=== PATIENT | female | born 1945 | race Caucasian/White ===

== ENCOUNTER → 2023-07-04 17:22 | Outpatient (REF) | payer MEDICARE, OTHER, SELFPAY | LOC: WDC 17:22 | PROVIDERS: ATTENDING PHYSICIAN Family Medicine | DX: Z12.31 Encounter for screening mammogram for malignant neoplasm of breast (principal) | CPT/HCPCS: 77063; 77067 ==

== ENCOUNTER → 2024-08-08 13:34 | Outpatient (REF) | payer MEDICARE, OTHER, SELFPAY | LOC: WDC 13:34 | PROVIDERS: ATTENDING PHYSICIAN Family Medicine | DX: Z12.31 Encounter for screening mammogram for malignant neoplasm of breast (principal) | CPT/HCPCS: 77063; 77067 ==

== ENCOUNTER 2024-12-14 01:30 | Inpatient (IN) | payer MEDICARE, OTHER, SELFPAY ==
[2024-12-13 22:15] VITALS: BP 139/71
[2024-12-13 22:25] VITALS: BMI 25.8
[2024-12-13 22:26] VITALS: BP 139/71
[2024-12-13 22:38] LABS: Hematocrit 38.1 % (37.0-47.0); Hemoglobin 13.6 g/dL (12.0-16.0); Mean Corp Hgb Conc. 35.7 g/dL (33.0-37.0); Mean Corpuscular Volume 89.6 fL (81.0-99.0); Nucleated Red Blood Cells % 0 %; Platelet Count 213 10^3/uL (130-400); Red Cell Dist. Width 12.4 % (11.5-14.5)
[2024-12-13 22:45] LABS: ALT (SGPT) 16 U/L (0-35); AST (SGOT) 22 U/L (14-36); Albumin 4.0 g/dl (3.5-5.0); Alkaline Phosphatase 81 U/L (38-126); Blood Urea Nitrogen 9 mg/dl (7-17); Calcium 9.3 mg/dl (8.4-10.2); Carbon Dioxide 26 mmol/L (22-30); Chloride 92 mmol/L (98-107); Estimated Creatinine Clearance 51 ml/min; Glucose 166 mg/dl (70-99); Potassium 3.0 mmol/L (3.5-5.1); Sodium 126 mmol/L (135-145); Total Protein 6.9 g/dl (6.3-8.2); eGFR > 60.00
[2024-12-13 22:46] LABS: COVID-19 Antigen Negative (Negative)
[2024-12-13 22:55] LABS: Troponin I < 0.012 ng/ml
[2024-12-13 23:00] VITALS: BP 129/69
--- NOTE | 2024-12-13 23:35 | ED.GENMED ---
History of Present Illness
General
Chief Complaint: Fainting/Passed Out
Source: patient, spouse and ambulance crew
Exam Limitations: none
Time Seen by Provider: 12/13/24 22:23
Nursing documentation reviewed up to this point in time: agreed with
History of Present Illness
History of Present Illness:
Note:
CHIEF COMPLAINT(S)
Syncope
HISTORY OF PRESENT ILLNESS
The patient is a 79-year-old female who experienced a syncopal episode at home. She was attempting to clean her home and found herself on the floor, indicating she may have passed out. She reports a similar incident in the past and suspects
inadequate hydration contributed to this event. The patient feels improved at present and denies current pain. She remains oriented, correctly identifying the current year, month, and her location. The patient noticed a small bump on the top of her
head, and there is evidence of a minor laceration. A computed tomography scan of the head is planned to assess for possible head trauma.
PAST MEDICAL AND SURGICAL HISTORY
The patient has a history of high blood pressure, high cholesterol, and hypothyroidism. She reports previous surgery, notably a hysterectomy.
ALLERGIES
Penicillin, which causes rash.
MEDICATIONS
Atenolol, atorvastatin, levothyroxine; the specific dosages are not mentioned.
PHYSICAL EXAM
General: Alert, no acute distress.
Skin: Small bump on the top of the head. Minor laceration noted.
Head: Normocephalic, atraumatic, except for noted findings.
CV: S1/2, no murmurs
Eye, Ears, Nose, Mouth, and Throat: Oral mucosa moist.
Neurological: Alert and oriented to person, place, time, and situation; exhibits no focal neurological deficits.
PROBLEM LIST
Acute Problems:
- Syncope
- Minor head trauma
Chronic Problems:
- Hypertension
- Hyperlipidemia
- Hypothyroidism
PLAN
- Perform a computed tomography scan of the head to rule out intracranial injury.
- Ensure patient is comfortable and warm with a blanket, as requested.
- Reassess hydration status and provide guidance on maintaining adequate fluid intake.
- Review current medications for any potential contribution to syncopal episodes.
DIFFERENTIAL DIAGNOSIS
The Differential Diagnosis includes, in no particular order and is not limited to:
1. Dehydration
2. Orthostatic hypotension
3. Medication side effect
4. Vasovagal syncope
5. Cardiac arrhythmia
6. Stroke or TIA
7. Metabolic disturbance
8. Neurogenic syncope
9. Blood volume depletion
10. Intracranial hemorrhage
CARE-UPDATE
12/14/24 - 01:33
Lab work indicates hyponatremia and hypokalemia. Head CT shows no acute findings. Chest x-ray reveals no acute issues. Ordered IV normal saline and ACL; magnesium testing pending. Coordinated admission with hospitalist for further management.
EKG
My independent EKG interpretation is:
- Time of EKG: December 13, 2217
- Rhythm: Normal sinus rhythm
- ST Segment Changes: No specific ST abnormality
- [place]: Normal
- [place] Interval: Normal
- QRS Duration: Normal
Disposition:
SUMMARY OF ENCOUNTER
The patient, a 79-year-old female, presented to the emergency department following a syncopal episode at home. She had similar episodes in the past, possibly related to dehydration. There was a minor head trauma accounted for by a small bump and
laceration on her head from the fall. The initial evaluation included a computed tomography scan of the head, which showed no acute findings. Laboratory tests revealed acute hyponatremia and hypokalemia, prompting the consideration for hospital
admission to correct electrolyte imbalances and monitor her condition. The EKG indicated normal sinus rhythm without dysrhythmias, troponin levels were normal, and the chest x-ray showed no acute issues.
DISPOSITION
Admit
ASSESSMENT
The patient experienced episodes of syncope likely precipitated by acute hyponatremia and hypokalemia. Her chronic condition of hypertension, hyperlipidemia, and hypothyroidism were also considered in her presentation.
PLAN
Admit the patient to the hospital for electrolyte repletion and continuous monitoring.
INDEPENDENT REVIEW OF LABS AND INTERPRETATION OF TESTS
- My independent review of electrolytes indicates acute hyponatremia and hypokalemia.
- My independent interpretation of the ECG demonstrates normal sinus rhythm without any ST segment abnormalities.
- My independent interpretation of the head CT shows no acute findings.
- My independent interpretation of the chest x-ray reveals no acute issues.
MEDICATION RECONCILIATION
The patient is currently taking atenolol, atorvastatin, and levothyroxine.
MEDICAL DECISION MAKING
- Complexity of Data Reviewed: Chronic conditions affecting care include hypertension, hyperlipidemia, and hypothyroidism. Differential diagnosis includes dehydration, orthostatic hypotension, medication side effect, vasovagal syncope, cardiac
arrhythmia, stroke, metabolic disturbance, neurogenic syncope, blood volume depletion, and intracranial hemorrhage.
- Data:
- Category 1:
- Lab tests reviewed include electrolytes revealing hyponatremia and hypokalemia.
- EKG reviewed showing normal sinus rhythm without dysrhythmias.
- Head CT and chest x-ray independently interpreted showing no acute abnormalities.
- Category 3:
- Discussion with hospitalist for admission and electrolyte repletion.
DIAGNOSIS
- Syncope, R55
- Acute hyponatremia, E87.1
- Acute hypokalemia, E87.6
Past History
Past History
ED Past Medical History: HTN
ED Past Surgical History: None
Social History
Tobacco: Non-smoker
Personal:
Living: with family
Phy Exam
Physical Exam
Physical Exam:
.
Course
Orders/Labs/Results
Orders:
Orders
12/13/24 22:12
Electrocardiogram (*1) Urgent
Reason for Study: Syncope
12/13/24 22:14
EKG- Treatment ONCE
12/13/24 22:15
Complete Blood Count/With Diff Urgent
Comprehensive Metabolic Panel Urgent
Magnesium Urgent
Comment: ADD ON
Serum Osmolality Urgent
Comment: ADD ON
Troponin I Urgent
Influenza A+B Rapid Molecular Urgent
ODETTE Source: Nasal Swab
Specimen Description:
12/13/24 22:16
COVID-19 Antigen Urgent
Source: Nasal Swab
12/13/24 22:36
CT Head W/o Iv Contrast Urgent
Comment:
Reason For Exam: fall, syncope, parietal hematoma
CR Chest - 2 Views Urgent
Comment:
Reason For Exam: syncope, cough
12/13/24 22:37
IV Insert/Care/Rem.- Treatment PRN
12/14/24 01:15
Admit/Transfer Patient As Directed
Co-Sign Provider:
Level of Care: Inpatient admission
Assign to:: Telemetry
Physician / Group: Ministerio
Diagnosis: Syncope, Hyponatremia, Hypokalemia
Reason for Telemetry: Syncope
Date to Stop Telemetry: 12/16/24
Time to Stop Telemetry: 11:00
Reason for Hospitalization: Syncope, Hyponatremia, Hypokalemia
Expected length of stay greater than two midnights?: Yes
ELOS- Estimated Length of Stay in days: 2
I certify the patient meets the requirements for IP care: Yes
PRN Pain Medication Management As Directed
May give lesser potent ordered pain med per pt: Yes
preference::
Protocol:: Medication orders for pain may be administered in a
manner that supports deferring to patient preference
when the pt is:
- Requesting an ordered lesser potent pain medication.
Least to most potent pain medications are defined
as: acetaminophen < NSAID < tramadol < opioids
(morphine, oxycodone, hydromorphone).
- Requesting a lesser dose of the same medication IF
ORDERED.
- Requesting a less intrusive route of administration
if both routes are prescribed by the provider (PO <
IV).
12/14/24 01:16
Code Status As Directed
Resuscitation Status: Full Code
12/14/24 01:25
Add On- LAB Urgent
Tests Added?: serum osmolality
Urine Sodium Urgent
Potassium Chloride [KCl] 40 meq PO NOW STA
12/14/24 01:26
Osmolality, Random Urine Urgent
12/14/24 01:29
Add On- LAB Urgent
Tests Added?: magnesium
12/14/24 01:36
Potassium Chloride [KCl] 40 meq 0.9% Sodium Chloride 250 ml [Nss] 250 ml IV NOW
12/14/24 01:53
Potassium Chloride 10% Elixir [KCl Elixir] 40 meq PO NOW STA
12/16/24 11:00
DC Protocol for Telemetry ONCE
Abnormal Lab Results
12/13/24
22:15
MCH 32.0 H pg
(27.0-31.0)
Absolute Monos (auto) 1.2 H 10^3/uL
(0.1-0.6)
Monocytes % 12.2 H %
(1.7-9.3)
Sodium 126 L mmol/L
(135-145)
Potassium 3.0 L mmol/L
(3.5-5.1)
Chloride 92 L mmol/L
(98-107)
Glucose 166 H mg/dl
(70-99)
Serum Osmolality 273 L mOsm/kg
(275-300)
Total Bilirubin 1.4 H mg/dl
(0.2-1.3)
12/13/24 22:15
12/13/24 22:15
Vital Signs
Initial and Last Documented VS:
Initial Vital Signs
Pulse Resp BP
88 21 139/71
12/13/24 22:15 12/13/24 22:15 12/13/24 22:15
Last Documented Vital Signs
Temp Pulse Resp BP Pulse Ox
97.7 F 80 19 129/68 98
12/13/24 22:26 12/14/24 00:45 12/14/24 00:45 12/14/24 00:00 12/13/24 23:35
*Pulse Oximetry
SaO2: 98
Oxygen Mode of Delivery: Room air
Patient hypoxic: no
*Critical Care Note
Total Time (30-74mins, 75-104mins- exclusive of procedures): Not Applicable
ED Attending Note
-
Portions of this chart may have been created with voice recognition software.� Occasional wrong word or��sound alike� substitutions may have occurred due to the inherent limitations of voice recognition software.
Discharge Plan
Departure
Patient Disposition: Admit
Date of Disposition: 12/14/24
Time of Disposition: 01:31
Admit to: Telemetry
Presentation/result/management discussed w/ accepting MD/DO: Hospitalist
Patient with high blood pressure during this ER visit?: Yes
Condition: Good
Discharge Problem:
Syncope, Acute hyponatremia, Acute hypokalemia
Prescriptions:
No Action
hydrochlorothiazide 25 MG tablet
25 mg PO DAILY
losartan 50 mg Tablet
50 mg PO DAILY
metoprolol succinate 50 mg Tablet Extended Release 24 Hr
50 mg PO DAILY
levothyroxine 25 mcg Tablet
25 mcg PO DAILY
rosuvastatin 10 mg Tablet
10 mg PO DAILY
Referrals:
Nichol Lim DO [Family Provider, Family Practice]
Discharge Date and Time
Print Language: LITHUANIAN
[2024-12-14] VITALS (11 sets, daily range): BP systolic 129–159; BP diastolic 63–107; PULSE 97–110; O2SAT 98
[2024-12-14] MEDS: KCL ELIXIR 40 MEQ PO (01:00)
[2024-12-14 01:05] LABS: Magnesium 1.8 mg/dl (1.6-2.3)
--- NOTE | 2024-12-14 01:18 | HPS.HSE ---
Family Physician
-
Family Physician: Nichol Lim
Chief Complaint
-
Syncope
History of Present Illness
Patient is a 79y F with PMH significant for hypertension and hypothyroidism who presents to ED complaining of syncopal episode. Patient states that she has been ill with cold symptoms for the past three days. She reports sore throat and harsh,
non-productive cough. was recently ill with similar symptoms. Patient states that she has had poor appetite / decreased PO intake due to these symptoms. Tonight she was brushing her teeth when she felt lightheaded and woozy.
heard a loud noise and found her lying on the bathroom floor. She came to quickly. No complaints of pain, chest pain, headache, dyspnea, etc after waking.
911 was called and patient brought to the ED for further evaluation.
At present she is feeling much improved and has no specific complaints.
Medical History
Past Medical History
Past Medical History: Reports Other
Additional Past Medical History:
Hypertension
Hypothyroidism
Anxiety / Depression
Past Surgical History: Reports Other
Additional Past Surgical History:
Hysterectomy
Social History
Tobacco: Non-smoker
Alcohol: None
Drug: None
Personal:
Living: With Family
Family History
Family History: Not pertinent
Allergies / Home Medications
Allergies reflects when Allergies were last updated in [employer].
Home Medications with original date entered in [employer]
Allergy/Medication List:
Allergies
Allergy/AdvReac Type Severity Reaction Status Date / Time
Penicillins Allergy Rash Verified 01/14/19 18:02
Home Medications
hydrochlorothiazide 25 mg tablet 25 mg PO DAILY 09/01/12
levothyroxine 25 mcg tablet 25 mcg PO DAILY 12/13/24
losartan 50 mg tablet 50 mg PO DAILY 12/13/24
metoprolol succinate 50 mg tablet,extended release 24 hr 50 mg PO DAILY 12/13/24
rosuvastatin 10 mg tablet 10 mg PO DAILY 12/13/24
Review of Systems
-
History Source: Patient
A 12 point ROS was completed and negative except as noted: Yes
Constitutional: Reports Fatigue; Denies Fever or Chills
EENT: Reports Sore Throat
Respiratory: Reports Cough; Denies Trouble Breathing
Cardiac: Reports Syncope; Denies Chest Pain or Palpitations
Abdomen/GI: Reports Nausea; Denies Abdominal Pain, Vomiting or Diarrhea
: Denies Dysuria, Frequency or Flank Pain
Musculoskeletal: Denies Joint Pain or Edema
Neurological: Reports Dizzy; Denies Headache, Weakness or Numbness
Psych: Denies Depression or Anxiety
Physical Exam
Vital Signs
Vital Signs
Temp Pulse Resp BP Pulse Ox
97.7 F 80 19 129/68 98
12/13/24 22:26 12/14/24 00:45 12/14/24 00:45 12/14/24 00:00 12/13/24 23:35
Physical Exam
General: Other (79y F in no acute distress.)
HEENT: Moist mucous membranes and PERRLA
Respiratory: Clear; No Wheezes, Rales or Rhonchi
Cardiac: S1/S2 and Regular Rhythm; No Murmur
GI: Soft, Non Tender, Non Distended and Normal Bowel Sounds
Musculoskeletal: No Clubbing, No Cyanosis and No Edema
Neuro: AO x 3 and Nonfocal/grossly intact
Laboratory Results
-
12/13/24 22:15
12/13/24 22:15
Laboratory Results
Total Bilirubin 1.4 mg/dl (0.2-1.3) H 12/13/24 22:15
AST 22 U/L (14-36) 12/13/24 22:15
ALT 16 U/L (0-35) 12/13/24 22:15
Alkaline Phosphatase 81 U/L (38-126) 12/13/24 22:15
Troponin I < 0.012 ng/ml 12/13/24 22:15
Impression/Plan
-
A/P: Patient is a 79y F with PMH significant for hypertension and hypothyroidism who presents to ED for evaluation after syncopal episode at home.
Syncope
- Admit for further evaluation and treatment.
- Likely secondary to recent acute illness and subsequent hypovolemia / electrolyte abnormalities.
- Monitor on tele overnight for any evidence of arrhythmia.
- Follow orthostatic signs.
- IVF support.
- Follow for any new / recurrent symptoms.
- PT eval in the AM.
Hyponatremia
Hypokalemia
- Urine studies are pending. No recent baseline labs to compare - mild hyponatremia on labs several years ago.
- Likely due to acute illness, poor PO intake and continued use of HCTZ.
- Hold HCTZ.
- Gentle IVF support.
- Follow-up urine studies (still pending). Check TFTs.
- Follow for improvement in labs / lytes.
- Consider Nephrology evaluation if persistent / worsening hyponatremia in the AM.
Benign Hypertension
- Stable. Continue metoprolol with holding parameters.
- Discontinue HCTZ. Hold losartan acutely and resume once improved PO intake, etc.
Hypothyroidism
- Continue current T4 replacement. Update TFTs as noted above.
DVT Prophylaxis: Lovenox
Code Status: Full
[2024-12-14] MEDS: KCL 270 MEQ IV (01:48)
[2024-12-14 05:24] LABS: Hematocrit 36.5 % (37.0-47.0); Hemoglobin 12.7 g/dL (12.0-16.0); Mean Corp Hgb Conc. 34.8 g/dL (33.0-37.0); Mean Corpuscular Volume 91.0 fL (81.0-99.0); Platelet Count 175 10^3/uL (130-400); Red Cell Dist. Width 12.4 % (11.5-14.5)
[2024-12-14 05:49] LABS: Blood Urea Nitrogen 8 mg/dl (7-17); Calcium 8.9 mg/dl (8.4-10.2); Carbon Dioxide 26 mmol/L (22-30); Chloride 102 mmol/L (98-107); Estimated Creatinine Clearance 59 ml/min; Glucose 119 mg/dl (70-99); Potassium 4.4 mmol/L (3.5-5.1); Sodium 130 mmol/L (135-145); eGFR > 60.00
[2024-12-14] MEDS: SYNTHROID 25 MCG PO (05:52)
[2024-12-14] MEDS: LR 1000 IV (05:52)
[2024-12-14] MEDS: CRESTOR 10 MG PO (07:25)
[2024-12-14] MEDS: TOPROL XL 50 MG PO (07:25)
--- NOTE | 2024-12-14 08:57 | W.PN.HOSP.TC ---
Today's Communication/Plan
-
OK for DC today
Assessment / Plan
Assessment / Plan
Patient is a 79y F with PMH significant for hypertension and hypothyroidism who presents to ED for evaluation after syncopal episode at home.
Syncope
- Likely secondary to recent acute illness and subsequent hypovolemia / electrolyte abnormalities. Patient reports missing lunch and dinner yesterday because she was sleeping
- s/p fluids and electrolyte repletion; ate breakfast this morning and worked well with PT
Hyponatremia
Hypokalemia
- Likely due to acute illness, poor PO intake and continued use of HCTZ.
- Hyponatremia improved post IVF administration
- Hold HCTZ now and at MO
- TSH 0.93
Benign Hypertension
- Stable. Continue metoprolol with holding parameters.
- Discontinue HCTZ. resume Losartan
Hypothyroidism
- Continue current T4 replacement. Update TFTs as noted above.
DVT Prophylaxis: Lovenox
Code Status: Full
Anticipated Discharge: Today
Subjective/Interval History
-
Date of Service: December 14, 2024
she is feeling much better and ate all of her breakfast this morning, feels ready to go home
worked well with PT
Objective Data
-
Labs:
Laboratory Results
12/13/24 12/14/24
22:15 05:07
WBC 9.7 7.3
Hgb 13.6 12.7
Hct 38.1 36.5 L
Plt Count 213 175
Sodium 126 L 130 L
Potassium 3.0 L 4.4 D
Chloride 92 L 102
Carbon Dioxide 26 26
BUN 9 8
Creatinine 0.7 0.5 L
Glucose 166 H 119 H
Calcium 9.3 8.9
Total Bilirubin 1.4 H
AST 22
ALT 16
Alkaline Phosphatase 81
Vital Signs:
Vital Signs
Temp Pulse Resp BP Pulse Ox
98.3 F 104 15 153/79 97
12/14/24 07:23 12/14/24 07:23 12/14/24 07:23 12/14/24 07:23 12/14/24 07:23
Review of Systems
-
History Source: Patient
All other systems: Reviewed and negative
Physical Exam
-
General: No Apparent Distress
HEENT: PERRLA
Respiratory: Clear to Auscultation; Negative Wheezes
Cardiac: Regular Rhythm and S1/S2
GI: Soft and Nontender
Musculoskeletal: No Edema
Skin: Warm and Dry; Negative Rash
Neuro: AO x 3
Psych: Calm
Data Reviewed
-
Diagnostic Radiology: Report Reviewed by me
Labs: Labs Reviewed by me
--- NOTE | 2024-12-14 09:15 | EDRN ---
Pt in chair, seen by PT/OT this am. Pt just given breakfast at this time.
--- NOTE | 2024-12-14 10:09 | EDRN ---
Dr. Bucio in room w/pt at this time.
--- NOTE | 2024-12-14 10:10 | EDRN ---
Dr. Bucio is going to discharge pt w/ a script for labs.
--- NOTE | 2024-12-14 10:21 | W.DS.TRANS ---
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
-
Discharge Instructions:
Diet Regular
Activity As tolerated
Driving Restrictions As prior to admission
Blood Work BMP in 3-5 days
Instructions:
Stand-Alone Forms:
Changes to Home Medications: Yes
Discharge Medications:
DC Medications w/original date entered in [employer]
levothyroxine 25 mcg tablet 25 mcg PO DAILY 12/13/24
losartan 50 mg tablet 50 mg PO DAILY 12/13/24
metoprolol succinate 50 mg tablet,extended release 24 hr 50 mg PO DAILY 12/13/24
rosuvastatin 10 mg tablet 10 mg PO DAILY 12/13/24
basic metabolic panel #1 ea 12/14/24
Home Medication Changes
STOP HCTZ
Pending Results: No
--- NOTE | 2024-12-14 11:27 | EDCM ---
CM reviewed chart and met with pt bedside in ED Lives with her in 2 story home, [address]. First floor half bath, full flight to second floor bedroom and full bath.
Independent in ADLs, personal care and ambulation at baseline. No assistive device, no DME in home.
Confirms prescription coverage.
No hx VN or SNF
PCP: Nichol Lim
Pharmacy: [facility]
Per pt she is being discharged from ED, discharge order is in. No CM needs at this time.
--- NOTE | 2024-12-14 11:45 | EDRN ---
Pt has script for BMP that Dr. Bucio gave her.
--- NOTE | 2024-12-14 14:01 | W.DCSUMMARY ---
Discharge Summary
Discharge Data
Date of Admission: 12/14/24
Date of Discharge: 12/14/24
-
Pending Results: No
Hospital Course
Discharging Physician : Dr. Eva Bucio
Disposition : Home
Primary care physician : Dr. Nichol Lim
Principal Discharge diagnosis : Orthostatic Syncope, Dehydration
Hospital Course :
Ms. Justina Alcantara is a 79 yo woman with hx essential HTN, hypothyroidism, recent URI presents to the ER after an episode of syncope. Patient had slept a lot that day and had missed lunch and dinner. She was brushing her teeth when she felt
lightheaded and passed out, brought to the ER. Triage vitals stable. Labs with Na 126, K+ 3.0, WBC 9.7, Glucose 166. Head CT without acute event, CXR without pneumonia. She was admitted to telemetry. She was given K+ repletion, IVF.
Patient felt much improved the following morning. Na 130 and K+ > 4. She ate her whole breakfast and worked well with PT. Patient felt ready for discharge. She is told to continue to hold HCTZ at DC until redirected by her PCP. A follow up BMP
is ordered for 3-5 days.
Time spent on discharge was 31 minutes.
Important imaging findings :
CXR
IMPRESSION:
No evidence of active cardiopulmonary disease.
HEAD CT
IMPRESSION:
No evidence of acute intracranial abnormality.
Procedure findings :
Discharge Plan
-
Patient Disposition: Home (Routine Discharge)
Condition: Good
Diet: Regular
Activity: As tolerated
Driving Restrictions: As prior to admission
Blood Work: BMP in 3-5 days
Referrals:
Nichol Lim, DO [Family Provider, [facility]] - in less than 1 week
Additional Discharge Medication Instructions: STOP Hydrochlorothiazide - this can lower sodium levels. Discuss further with Dr. Lim if/when this can be resumed based on follow up labs.
Prescriptions:
New
(DME) basic metabolic panel
See Rx Instructions .Route .MEDSUPPLY Qty: 1 0RF
Rx Instructions:
BMP in 3-5 days; fax results to PCP
Continued
losartan 50 mg Tablet
50 mg PO DAILY
metoprolol succinate 50 mg Tablet Extended Release 24 Hr
50 mg PO DAILY
levothyroxine 25 mcg Tablet
25 mcg PO DAILY
rosuvastatin 10 mg Tablet
10 mg PO DAILY
Discontinued
hydrochlorothiazide 25 MG tablet
25 mg PO DAILY
Discharge Orders:
Discharge Patient (As Directed); Ordered 12/14/24
Ordered By: Eva Bucio
Discharge Date and Time
Discharge Date/Time: 12/14/24 11:55
Print Language: BENGALI
== END 2024-12-14 11:55 | disposition home or self-care (01) | DRG 641 ==
LOC: ED 01:30
PROVIDERS: ADMITTING PHYSICIAN Hospitalist; ATTENDING PHYSICIAN Student in an Organized Health Care Education/Training Program; EMERGENCY PHYSICIAN Emergency Medicine; FAMILY PHYSICIAN Family Medicine
DX: E86.0 Dehydration (principal); R55 Syncope and collapse; E87.1 Hypo-osmolality and hyponatremia; E78.00 Pure hypercholesterolemia, unspecified; E03.9 Hypothyroidism, unspecified; I10 Essential (primary) hypertension; E87.6 Hypokalemia; F32.A Depression, unspecified; F41.9 Anxiety disorder, unspecified; E86.1 Hypovolemia; Z79.890 Hormone replacement therapy; Z11.52 Encounter for screening for COVID-19; Z88.0 Allergy status to penicillin; Z90.710 Acquired absence of both cervix and uterus
CPT/HCPCS: 70450; 71046; 80048; 80053; 83735; 83930; 83935; 84300; 84443; 84484; 85025; 85027; 87502; 87811; 93005; 96361; 96374; 99285

== ENCOUNTER → 2025-01-05 10:50 | Outpatient (REF) | payer MEDICARE, OTHER, SELFPAY | LOC: HWRCS 10:50 | PROVIDERS: ATTENDING PHYSICIAN Nurse Practitioner Family | DX: R55 Syncope and collapse (principal) | CPT/HCPCS: 93306 ==